=== PATIENT | female | born 1985 | race Caucasian/White ===

== ENCOUNTER 2018-12-23 16:11 | Emergency (ER) | payer OTHER ==
[2018-12-23] MEDS: IBUPROFEN 600 MG TAB PO (17:47)
[2018-12-23] MEDS: predniSONE 20 MG TAB PO (17:47)
[2018-12-23] MEDS: CIPROFLOXACIN 500 MG TAB PO (17:47)
== END 2018-12-23 18:09 | disposition home or self-care (01) ==
LOC: FTE 16:11
DX: H60.502 Unspecified acute noninfective otitis externa, left ear (principal)
CPT/HCPCS: 99283; J7512

== ENCOUNTER 2019-01-06 15:30 | Emergency (ER) | payer OTHER | END 2019-01-06 19:55 | disposition home or self-care (01) | LOC: FTE 15:30 | DX: H66.93 Otitis media, unspecified, bilateral (principal); I10 Essential (primary) hypertension | CPT/HCPCS: 99283; Z7502 ==

== ENCOUNTER 2019-02-05 15:48 | Emergency (ER) | payer OTHER ==
[2019-02-05] MEDS: KETOROLAC 60 MG INJ IM (18:07)
[2019-02-05] MEDS: HYDROCODONE/APAP (10/325) TAB PO (18:07)
== END 2019-02-05 20:28 | disposition home or self-care (01) ==
LOC: FTE 20:28
DX: S93.402A Sprain of unspecified ligament of left ankle, initial encounter (principal); H60.91 Unspecified otitis externa, right ear; I10 Essential (primary) hypertension; X50.1XXA Overexertion from prolonged static or awkward postures, initial encounter; Y92.9 Unspecified place or not applicable
CPT/HCPCS: 29515; 73610; 81025; 96372; 99284-25

== ENCOUNTER 2019-02-18 19:27 | Emergency (ER) | payer OTHER ==
[2019-02-18] MEDS: CIPROFLOXACIN 500 MG TAB PO (21:42)
[2019-02-18] MEDS: IBUPROFEN 600 MG TAB PO (21:42)
[2019-02-18] MEDS: DEXAMETHASONE 10 MG/ML 1 ML INJ IM (21:43)
== END 2019-02-18 22:16 | disposition home or self-care (01) ==
LOC: FTE 19:27
DX: H60.502 Unspecified acute noninfective otitis externa, left ear (principal)
CPT/HCPCS: 96372; 99284-25